=== PATIENT | male | born 2000 | race Caucasian/White ===

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

== ENCOUNTER 2025-04-20 13:44 | Emergency (ER) | payer MEDICAID | END 2025-04-20 15:29 | disposition home or self-care (01) | LOC: JP.ED 13:44 | DX: S83.92XA Sprain of unspecified site of left knee, initial encounter (principal); Z87.891 Personal history of nicotine dependence; W18.39XA Other fall on same level, initial encounter; Y93.89 Activity, other specified | CPT/HCPCS: 73562; 99283; A9270 ==